=== PATIENT | male | born 1945 | race Caucasian/White ===

== ENCOUNTER 2017-06-30 14:19 | Inpatient (IN) | payer OTHER ==
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
[2017-06-30] MEDS ORDERED: chlordiazePOXIDE HCL 25 MG CAPSULE PO ONE (19:41)
[2017-06-30] MEDS ORDERED: chlordiazePOXIDE HCL 25 MG CAPSULE ONE (19:45)
[2017-06-30] MEDS ORDERED: SODIUM CHLORIDE 1,000 ML IV STA (19:55)
--- NOTE | 2017-06-30 20:03 | PDOC ---
History of Present Illness - General Chief Complaint: Injury Stated Complaint: RT SIDE PAIN Time Seen by Provider: 06/30/17 19:36 History Source: Patient - History of Present Illness Initial Comments: 06/30/17 19:54 72 year old male history of alcohol abuse daily "1 liter shannon" reports that he stopped drinking 1 day ago. now with LUQ pain radiating to back. patient reports that he fell out of bed two days ago fell to the right side. and hit head. unsure of injury to left side. patient reports worsening withdrawal symptoms since stopping alcohol intake. denies NVD,Hemoptysis, 06/30/17 23:44 Past History - Past Medical History Allergies/Adverse Reactions: Allergies Allergy/AdvReac Type Severity Reaction Status Date / Time No Known Allergies Allergy Verified 06/30/17 14:22 Home Medications: Ambulatory Orders Aspirin/Calcium Carbonate/Mag [Aspirin Buffered 325 mg Tab] 325 mg PO DAILY Atenolol [Tenormin -] 12.5 mg PO DAILY 09/20/15 Citalopram Hydrobromide [Celexa -] 20 mg PO DAILY 09/20/15 Lisinopril [Prinivil] 10 mg PO DAILY 09/20/15 Metformin HCl [Metformin HCl ER] 500 mg PO DAILY 09/20/15 Quetiapine Fumarate [Seroquel] 100 tab PO HS 09/20/15 Rosuvastatin Calcium [Crestor] 5 mg PO DAILY 09/20/15 Anemia: No Asthma: No Cancer: No Cardiac Disorders: No CVA: No COPD: No CHF: No Dementia: No Diabetes: Yes (Metformin) GI Disorders: No Disorders: No HTN: Yes (Lisinopril) Hypercholesterolemia: Yes (Crestor) Kidney Stones: No Liver Disease: Yes (Not on medication) Seizures: No Thyroid Disease: No - Surgical History Abdominal Surgery: No Appendectomy: No Cardiac Surgery: No Cholecystectomy: No Lung Surgery: Yes (CLOSED THORACOTOMY(CHEST TUBE)) Neurologic Surgery: No Orthopedic Surgery: No - Reproductive History Testicular Surgery: No - Suicide/Smoking/Psychosocial Hx Smoking History: Current every day smoker Have you smoked in the past 12 months: Yes Number of Cigarettes Smoked Daily: 20 Information on smoking cessation initiated: No 'Breaking Loose' booklet given: 06/16/17 Hx Alcohol Use: Yes Drug/Substance Use Hx: No Substance Use Type: None Hx Substance Use Treatment: Yes ([facility] 2016) Trauma Specific PMHX - Complaint Specific PMHX Arthritis: No Review of Systems - Review of Systems Able to Perform ROS?: Yes Is the patient limited [place] proficient: No ABD/GI: Yes: Abdominal cramping Neurological: Yes: Tremors *Physical Exam - Vital Signs Last Vital Signs Temp Pulse Resp BP Pulse Ox 97.8 F 70 18 144/95 100 06/30/17 14:24 06/30/17 19:23 06/30/17 19:23 06/30/17 19:23 06/30/17 19:23 - Physical Exam General Appearance: Yes: Mild Distress, Other. No: Alcohol on Breath Respiratory/Chest: positive: Lungs Clear, Normal Breath Sounds Cardiovascular: positive: Regular Rhythm, Regular Rate Gastrointestinal/Abdominal: positive: Normal Bowel Sounds, Tender (LUQ), Distended Extremity: positive: Normal Capillary Refill, Normal Inspection, Normal Range of Motion Integumentary: positive: Normal Color, Dry, Warm Neurologic: positive: Fully Oriented, Alert, Normal Mood/Affect, Other ( normocephalic) Heart Score/ECG Review - History History: Slightly suspicious - Electrocardiogram EKG: Normal - Age Age: >/= 65 - Risk Factors Risk Factors Heart Score: Yes Hx Hypercholesterolemia, Yes Hx Hypertension, Yes Hx Diabetes Based on the list above the patient has:: >/=3 risk factors or Hx atherosclerotic disease - Troponin Troponin: </= normal limit - Score Heart Score - Total: 4 - ECG Intrepretation Rhythm: Regular Rhythm Comment:: 06/30/17 23:45 NSR: 63bpm ED Treatment Course - LABORATORY CBC & Chemistry Diagram: 07/01/17 06:15 07/01/17 06:15 - Medications Given in the ED: ED Medications Discontinued Medications Generic Name Dose Route Start Last Admin Trade Name Freq PRN Reason Stop Dose Admin Chlordiazepoxide HCl 50 mg 06/30/17 19:41 06/30/17 19:48 Librium - PO 06/30/17 19:42 50 mg ONCE ONE Administration Progress Note - Progress Note Progress Note: A: abdominal pain. withdrawal P: cbc cmp ua CTAP CT head ribs librium ativan Patient to be admitted for alcohol withdrawal. Medical Decision Making - Medical Decision Making 06/30/17 23:[address] marin. patient to be admitted for obs tele *DC/Admit/Observation/Transfer Diagnosis at time of Disposition: Alcohol withdrawal Closed rib fracture Qualifiers: Encounter type: initial encounter Rib fracture type: single rib Laterality: left Qualified Code(s): S22.32XA - Fracture of one rib, left side, initial encounter for closed fracture - Discharge Dispostion Admit: Yes - Referrals - Patient Instructions - Post Discharge Activity
[2017-06-30 20:06] LABS: BASO % 0.7 % (0-2.0); EOS % 0.9 % (0-4.5); HEMATOCRIT 37.7 % (35.4-49); HEMOGLOBIN 12.9 GM/dL (11.7-16.9); LYMPH % 20.2 % (8-40); MCH 31.9 pg (25.7-33.7); MCHC 34.3 g/dl (32.0-35.9); MEAN CELL VOLUME 92.9 fl (80-96); MEAN PLT VOLUME 6.8 fl (7.5-11.1); MONO % 7.2 % (3.8-10.2); PLATELET COUNT 247 K/MM3 (134-434); RBC 4.06 M/mm3 (4.00-5.60); RDW 14.6 % (11.9-15.9)
[2017-06-30] MEDS ORDERED: FOLIC ACID INJECTION - 1 MG, THIAMINE HCL 100 MG, MULTIVIT INJECTION ADULT 10 ML in SOD... IVPB ONE (20:10)
[2017-06-30 20:51] LABS: ALBUMIN 3.4 g/dl (3.4-5.0); ALK PHOS 120 U/L (45-117); ANION GAP 4 (8-16); BILIRUBIN,TOTAL 0.6 mg/dL (0.2-1.0); BLOOD UREA NITROGEN 21 mg/dL (7-18); CALCIUM 9.3 mg/dL (8.5-10.1); CHLORIDE 102 mmol/L (98-107); CO2 32 mmol/L (21-32); CREATININE 0.8 mg/dL (0.7-1.3); GLUCOSE,RANDOM 88 mg/dL (74-106); LIPASE 112 U/L (73-393); POTASSIUM 4.5 mmol/L (3.5-5.1); SGOT/AST 24 U/L (15-37); SGPT/ALT 24 U/L (12-78); SODIUM 138 mmol/L (136-145); TOT PROT 7.8 g/dl (6.4-8.2)
--- NOTE | 2017-06-30 23:52 | PN ---
Teaching Attending Note Name of Resident: Sanjuana Rhodes ATTENDING PHYSICIAN STATEMENT I saw and evaluated the patient. I reviewed the resident's note and discussed the case with the resident. I agree with the resident's findings and plan as documented. SUBJECTIVE: 72 M with hx. of ETOH dependence, DM, ?liver dz, Depression, HTN, HLD, anxiety who presents with left upper quadrant pain. States he fell out of bed and fell to right side. Notes he stopped drinking 3 day ago. Denies any chest pain or pressure, except left rib pain. No shortness of breath. No fevers or chills. No nausea, vomiting or diarrhea. OBJECTIVE: Physical: VS: Vital Signs Period Temp Pulse Resp BP Sys/Alonso Pulse Ox Last 24 Hr 97.8 F 70-72 18-18 107-144/59-95 98-100 GEN: NAD, Resting in bed, AA0X3 HEENT: NCAT, PERRL, Throat without erythema or exudates CARD: RRR S1, S2 RESP: CTAB ABD: BSx4, NTD to palpation EXT: Tremulous UE, - C/C/E CBCD WBC 10.0 K/mm3 (4.0-10.0) 06/30/17 20:00 RBC 4.06 M/mm3 (4.00-5.60) 06/30/17 20:00 Hgb 12.9 GM/dL (11.7-16.9) 06/30/17 20:00 Hct 37.7 % (35.4-49) 06/30/17 20:00 MCV 92.9 fl (80-96) 06/30/17 20:00 MCHC 34.3 g/dl (32.0-35.9) 06/30/17 20:00 RDW 14.6 % (11.9-15.9) 06/30/17 20:00 Plt Count 247 K/MM3 (134-434) D 06/30/17 20:00 MPV 6.8 fl (7.5-11.1) L 06/30/17 20:00 CMP Sodium 138 mmol/L (136-145) 06/30/17 20:00 Potassium 4.5 mmol/L (3.5-5.1) 06/30/17 20:00 Chloride 102 mmol/L (98-107) 06/30/17 20:00 Carbon Dioxide 32 mmol/L (21-32) 06/30/17 20:00 Anion Gap 4 (8-16) L 06/30/17 20:00 BUN 21 mg/dL (7-18) H D 06/30/17 20:00 Creatinine 0.8 mg/dL (0.7-1.3) 06/30/17 20:00 Creat Clearance w eGFR > 60 (>60) 06/30/17 20:00 Random Glucose 88 mg/dL (74-106) 06/30/17 20:00 Calcium 9.3 mg/dL (8.5-10.1) 06/30/17 20:00 Total Bilirubin 0.6 mg/dL (0.2-1.0) 06/30/17 20:00 AST 24 U/L (15-37) D 06/30/17 20:00 ALT 24 U/L (12-78) D 06/30/17 20:00 Alkaline Phosphatase 120 U/L (45-117) H D 06/30/17 20:00 Total Protein 7.8 g/dl (6.4-8.2) 06/30/17 20:00 Albumin 3.4 g/dl (3.4-5.0) D 06/30/17 20:00 CARDIAC ENZYMES Creatine Kinase 89 IU/L (39-308) 06/30/17 20:04 Troponin I < 0.02 ng/ml (0.00-0.05) 06/30/17 20:04 CT ABD/PELVIS: Minimally displaced fx of L. 10th rib, enteritis, dilated CBD 12 mm, hepatic steatosis, Cirrumfrential wall thickening along distal esophagus, CT HEAD: No acute hemmorage or mass effect. 2.3cm Polypoid soft tissure in anterior L. nasal cavity. ASSESSMENT AND PLAN: 72 M with hx. of DM, HLD, Hep B (untreated)etoh dependence/abuse who presents with LUQ pain, being admitted for enteritis, management of withdrawl symptoms 1.) LUQ Abdominal Pain - Possible from Enteritis - Asymptomatic, no leukococytosis 2.) Etoh Dependence/Abuse - Thiamine/Folic A - CIWA - Detox Consult 3.) DM - FS - HgbA1c - RAISS 4.) Nasal Polyp - Needs Outpt. ENT FU 5.) Dvt Ppx - SCDs Place in Obs- tele
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
[2017-07-01] MEDS ORDERED: chlordiazePOXIDE HCL 25 MG CAPSULE ONE ×7 (02:17→19:13)
[2017-07-01] MEDS: chlordiazePOXIDE HCL 25 MG CAPSULE PO PRN ×2 (02:19→15:01)
[2017-07-01] MEDS: SODIUM CHLORIDE 1,000 ML IV SCH (04:57)
[2017-07-01] MEDS ORDERED: AZITHROMYCIN 250 MG TABLET ONE (05:00)
[2017-07-01] MEDS: chlordiazePOXIDE HCL 25 MG CAPSULE PO SCH ×3 (06:05→17:50)
[2017-07-01] MEDS: INSULIN SLIDING SCALE (NOVOLOG) 1 VIAL SQ SCH ×4 (07:15→22:36)
[2017-07-01 07:27] LABS: BASO % 0.3 % (0-2.0); HEMATOCRIT 34.9 % (35.4-49); LYMPH % 24.2 % (8-40); MCH 32.1 pg (25.7-33.7); MCHC 34.4 g/dl (32.0-35.9); MEAN CELL VOLUME 93.4 fl (80-96); MEAN PLT VOLUME 7.2 fl (7.5-11.1); MONO % 7.1 % (3.8-10.2); NEUT % 67.4 % (42.8-82.8); PLATELET COUNT 201 K/MM3 (134-434); RBC 3.74 M/mm3 (4.00-5.60); RDW 14.3 % (11.9-15.9); WHITE BLOOD COUNT 6.9 K/mm3 (4.0-10.0)
[2017-07-01 07:53] LABS: ANION GAP 4 (8-16); BLOOD UREA NITROGEN 19 mg/dL (7-18); CALCIUM 8.3 mg/dL (8.5-10.1); CHLORIDE 104 mmol/L (98-107); CO2 29 mmol/L (21-32); CREATININE 0.7 mg/dL (0.7-1.3); GLUCOSE,RANDOM 78 mg/dL (74-106); MAGNESIUM 1.7 mg/dL (1.8-2.4); PHOSPHOROUS 3.2 mg/dL (2.5-4.9); SODIUM 137 mmol/L (136-145)
[2017-07-01] MEDS ORDERED: MAGNESIUM 2GM/50ML STERILE WATER IVPB IVPB ONE (10:00)
[2017-07-01] MEDS ORDERED: THIAMINE HCL 100 MG TABLET (FP) PO SCH (10:00)
--- NOTE | 2017-07-01 10:45 | CONSULT ---
Consult Detox [facility] Reason for Current Admission/Consult: substance use Referred by:: dalila aldana - History History of Present Illness: 72 yo m with multiple medical comobidities includign alcohol use seble doddts 36 years sober and 36 years drinking was drinking 1 litre vodka daily when he stopped 4 days ago developed withdrawal sx and fell,now left rib fx on xary and in alcohol withdrawal . patient reports h/o alcohol withdrawal seizure alessandra past, dneis DTs h/o depression on medication. reports alcohol wtihdrawal sx still tolerating libirum deto x as ordere without sedation. smokes 1/5 PPD. denies all otehr illicit substance [facility] at [facility]. - History Source History Provided By: Patient, Medical Record, Caregiver Limitations to Obtaining History: No Limitations - Alcohol/Substance Use Hx Alcohol Use: Yes (1 litre daily vodka) Hx Substance Use Treatment: Yes - Current Drug/Alcohol Use Alcohol Route: Oral Frequency: Daily Amount used: 1 litre vodka Age of first use: 13 Date of Last Use: 06/27/17 - Significant Medical Findings: 72 yo m with h/o alchol use disorder severe, w alcohol withdrawal seizures, d/c drinking a few days ago and fell fx left rib,, admitted with alcohol withdrwal sx, pain left chest wall 2/2 fx rib CIWA Score - CIWA Score Nausea/Vomitin-Mild Nausea/No Vomiting Muscle Tremors: 4-Moderate,w/Arms Extend Anxiety: 3 Agitation: 3 Paroxysmal Sweats: 3 Orientation: 0-Oriented Tacttile Disturbances: 1-Very Mild Itch/Numbness Auditory Disturbances: 0-None Visual Disturbances: 0-None Headache: 1-Very Mild CIWA-Ar Total Score: 16 Assessment Plan - Diagnosis (1) Closed rib fracture Status: Acute Qualifiers: Encounter type: initial encounter Rib fracture type: single rib Laterality: left Qualified Code(s): S22.32XA - Fracture of one rib, left side , initial encounter for closed fracture (2) Drug-induced mood disorder Status: Acute (3) Hepatitis C Status: Acute (4) Plaque psoriasis Status: Acute (5) Substance induced mood disorder Status: Acute (6) Alcohol dependence with uncomplicated withdrawal Status: Chronic (7) Depression Status: Chronic Qualifiers: Major depression episode severity: unspecified (8) HTN (hypertension) Status: Chronic Qualifiers: Hypertension type: essential hypertension Qualified Code(s): I10 - Essential (primary) hypertension (9) Hypercholesterolemia Status: Chronic (10) Nicotine dependence Status: Chronic Qualifiers: Nicotine product type: cigarettes Substance use status: uncomplicated Qualified Code(s): F17.210 - Nicotine dependence, cigarettes, uncomplicated (11) Type II diabetes mellitus Status: Chronic Qualifiers: Diabetes mellitus oysterman insulin use: without oysterman use Diabetes mellitus complication status: without complication Qualified Code(s): E11.9 - Type 2 diabetes mellitus without complications - Plan Plan: chart, imaging and labs reviewed, patietn examined and hisotry taken. discussed care with medical teamin Ed. recommend: 1. fluids, vitamins, cont libirum detox, give libirum prn doses generaously, extra libirum 50mg dose ordered for this evening, patient is at risk of withdrawl seizures if nto appropritelymedicated, due to his age, mild sedation is indicated. 2. rib fx - lidoderm patch ordered for pain. refer for inpateitn rehab after he completes detox. Prasad Medrano MD [phone] - Medication Detox Regimen/Protocol: Librium
[2017-07-01] MEDS ORDERED: ZOLPIDEM TARTRATE 5 MG TABLET PO PRN ×2 (10:46→22:00)
[2017-07-01] MEDS: CITALOPRAM HYDROBROMIDE 20 MG TABLET (FP) PO SCH (11:27)
[2017-07-01] MEDS: ROSUVASTATIN CA 5 MG TABLET (FP) PO SCH (11:27)
[2017-07-01] MEDS: LISINOPRIL 10 MG TABLET (FP) PO SCH (11:27)
[2017-07-01] MEDS: FOLIC ACID 1 MG TABLET (FP) PO SCH (11:27)
[2017-07-01] MEDS: ATENOLOL 25 MG TABLET (FP) PO SCH (11:28)
[2017-07-01] MEDS: MAGNESIUM OXIDE 400 MG TABLET (FP) PO SCH ×2 (15:01→22:06)
--- NOTE | 2017-07-01 15:05 | PN ---
Physical Exam: SUBJECTIVE: Patient seen and examined at the bedside. OBJECTIVE: Called [facility] pharmacy to confirm meds: - Depakote 1000mg DR @ bedtime - Naltrexone (Vivitrol) 50mg daily - Citalopram 20mg daily - Seroquel 100mg @ bedtime daily - Multivitamin daily Vital Signs Period Temp Pulse Resp BP Sys/Alonso Pulse Ox Last 24 Hr 97.9 F-98.4 F 56-70 16-18 123-144/59-95 96-100 GENERAL: The patient is awake, alert, and fully oriented, mild tremors at rest HEAD: Normal with no signs of trauma. EYES: PERRL, extraocular movements intact, sclera anicteric, conjunctiva clear. No ptosis. ENT: Ears normal, nares patent, oropharynx clear without exudates, moist mucous membranes. NECK: Trachea midline, full range of motion, supple. LUNGS: Breath sounds equal, clear to auscultation bilaterally HEART: Regular rate and rhythm ABDOMEN: Soft, nontender, mildly distended EXTREMITIES: no edema. NEUROLOGICAL: Normal speech, gait not observed. PSYCH: anxious Laboratory Results - last 24 hr 06/30/17 06/30/17 06/30/17 20:00 20:00 20:00 WBC 10.0 RBC 4.06 Hgb 12.9 Hct 37.7 MCV 92.9 MCH 31.9 MCHC 34.3 RDW 14.6 Plt Count 247 D MPV 6.8 L Neutrophils % 71.0 Lymphocytes % 20.2 Monocytes % 7.2 Eosinophils % 0.9 Basophils % 0.7 Sodium 138 Potassium 4.5 Chloride 102 Carbon Dioxide 32 Anion Gap 4 L BUN 21 H D Creatinine 0.8 Creat Clearance w eGFR > 60 POC Glucometer Random Glucose 88 Hemoglobin A1c % Calcium 9.3 Phosphorus Magnesium Total Bilirubin 0.6 AST 24 D ALT 24 D Alkaline Phosphatase 120 H D Ammonia Creatine Kinase Troponin I Total Protein 7.8 Albumin 3.4 D Lipase 112 Alcohol, Quantitative < 5.0 06/30/17 06/30/17 07/01/17 20:04 20:04 06:15 WBC 6.9 D RBC 3.74 L Hgb 12.0 Hct 34.9 L MCV 93.4 MCH 32.1 MCHC 34.4 RDW 14.3 Plt Count 201 MPV 7.2 L Neutrophils % 67.4 Lymphocytes % 24.2 Monocytes % 7.1 Eosinophils % 1.0 Basophils % 0.3 Sodium Potassium Chloride Carbon Dioxide Anion Gap BUN Creatinine Creat Clearance w eGFR POC Glucometer Random Glucose Hemoglobin A1c % Calcium Phosphorus Magnesium Total Bilirubin AST ALT Alkaline Phosphatase Ammonia 16.26 Creatine Kinase 89 Troponin I < 0.02 Total Protein Albumin Lipase Alcohol, Quantitative 07/01/17 07/01/17 07/01/17 06:15 06:15 13:16 WBC RBC Hgb Hct MCV MCH MCHC RDW Plt Count MPV Neutrophils % Lymphocytes % Monocytes % Eosinophils % Basophils % Sodium 137 Potassium 4.0 Chloride 104 Carbon Dioxide 29 Anion Gap 4 L BUN 19 H Creatinine 0.7 Creat Clearance w eGFR POC Glucometer 109.72250 Random Glucose 78 Hemoglobin A1c % 5.5 Calcium 8.3 L Phosphorus 3.2 Magnesium 1.7 L Total Bilirubin AST ALT Alkaline Phosphatase Ammonia Creatine Kinase Troponin I Total Protein Albumin Lipase Alcohol, Quantitative Active Medications Generic Name Dose Route Start Last Admin Trade Name Freq PRN Reason Stop Dose Admin Atenolol 12.5 mg 07/01/17 10:00 07/01/17 11:28 Tenormin - PO 12.5 mg DAILY JOSE F Administration Chlordiazepoxide HCl 50 mg 07/01/17 05:00 07/01/17 12:42 Librium - PO 07/01/17 23:01 50 mg [id number] JOSE F Administration Chlordiazepoxide HCl 25 mg 07/02/17 05:00 Librium - PO 07/02/17 23:01 [id number] JOSE F Chlordiazepoxide HCl 15 mg 07/03/17 05:00 Librium - PO 07/03/17 23:01 [id number] JOSE F Chlordiazepoxide HCl 25 mg 07/01/17 00:55 07/01/17 02:19 Librium - PO 07/04/17 00:54 25 mg Q4H PRN Administration WITHDRAWAL(CONT SUBST) Citalopram Hydrobromide 20 mg 07/01/17 10:00 07/01/17 11:27 Celexa - PO 20 mg DAILY JOSE F Administration Folic Acid 1 mg 07/01/17 10:00 07/01/17 11:27 Folic Acid - PO 1 mg DAILY JOSE F Administration Sodium Chloride 1,000 mls @ 100 mls/hr 07/01/17 01:00 07/01/17 04:57 Normal Saline - IV 100 mls/hr ASDIR JOSE F Administration Insulin Aspart 1 vial 07/01/17 07:00 07/01/17 11:26 Novolog Vial Sliding Scale - SQ Not Given ACHS [facility] Protocol Ketorolac Tromethamine 10 mg 07/01/17 00:57 Toradol PO 07/06/17 00:59 Q6H PRN PAIN LEVEL 6-10 Lisinopril 10 mg 07/01/17 10:00 07/01/17 11:27 Prinivil PO 10 mg DAILY JOSE F Administration Magnesium Oxide 400 mg 07/01/17 11:00 Mag-Ox - PO BID JOSE F Multivit/Folic Acid/Iron 1 tab 07/02/17 10:00 Vitamins (Sjr) - PO DAILY JOES F Rosuvastatin Calcium 5 mg 07/01/17 10:00 07/01/17 11:27 Crestor - PO 5 mg DAILY JOSE F Administration Thiamine HCl 100 mg 07/01/17 22:00 Vitamin B1 - PO HS JOSE F Zolpidem Tartrate 5 mg 07/01/17 10:46 Ambien - PO HS PRN INSOMNIA ASSESSMENT/PLAN: Patient is a 72 year old male with a past medical history of alcohol abuse x 36 years, hepatitis B , depression, hypertension and diabetes. He has attempted sobriety multiple times as per patient and was most recently on Naltrexone ( Vivitrol) 50mg daily (attended AA meetings at [facility]) . He presents to the ED with withdrawals symptoms and admits to relapsing and drinking beer and 1 liter of vodka at home. He noted he was becomeing more tremulous and unsteady on his feet. He fell out of his bed and now has increased pain with movement on left flank Psyche: ETOH w/drawal, acute On Librium taper CIWA elevated Patient still with tremors Vitamin b1, vitamins, folic acid Can be monitored on med/surg floor Continue hydration Dr. Medrano following Mechanical fall 2/2 to ETOH w/drawal Rib series with no acute fracture Neuro: Seizure history On depakote 1000mg DR @ bedtime home dose Check valporic levels Depression/modd disorder on Citolopram On Seroquel 100mg @ bedtime daily home dose (hold Seroquel while on Librium as it may cause oversedation) Card: Hyperlipidemia On crestor 5mg PO Hypertension, chronic Monitor BP Continue lisinopril 20mg qd, atenolol 12.5mg qd' GI: Hepatitis B Outpatient follow up Endocrine: Diabetes, chronic Novolog SS, BGMs Diabetic diet Disposition: full code.
--- NOTE | 2017-07-01 17:01 | EKG ---
Test Reason : Blood Pressure : / mmHG Vent. Rate : 063 BPM Atrial Rate : 063 BPM P-R Int : 196 ms QRS Dur : 086 ms QT Int : 446 ms P-R-T Axes : 072 044 069 degrees QTc Int : 456 ms NORMAL SINUS RHYTHM NORMAL ECG WHEN COMPARED WITH ECG OF 16-JUN-2017 22:09, NO SIGNIFICANT CHANGE WAS FOUND Confirmed by MD Mejía Edward ([id number]) on 07/01/2017 5:01:08 PM Referred By: Confirmed By:Kevyn Mejía MD
[2017-07-01] MEDS ORDERED: NICOTINE POLACRILEX 2 MG GUM BUC PRN (17:05)
[2017-07-01] MEDS ORDERED: chlordiazePOXIDE HCL 25 MG CAPSULE PO ONE (19:00)
[2017-07-01] MEDS ORDERED: LIDOCAINE 5% TOPICAL PATCH ONE (19:13)
[2017-07-01] MEDS: LIDOCAINE 5% TOPICAL PATCH TP SCH (19:19)
[2017-07-01] MEDS: NICOTINE 21 MG/24 HOURS TOPICAL PATCH TD SCH (19:39)
[2017-07-01] MEDS ORDERED: DIVALPROEX SODIUM 250 MG TABLET E.C. PO SCH (22:00)
[2017-07-01] MEDS: KETOROLAC TROMETHAMINE 10 MG TABLET PO PRN (22:05)
[2017-07-01] MEDS: LIDOCAINE PATCH REMOVAL MC SCH (22:07)
[2017-07-01] MEDS ORDERED: DIVALPROEX SODIUM 500 MG TABLET E.C. ONE (22:10)
[2017-07-01] MEDS: DIVALPROEX SODIUM 500 MG TABLET E.C. PO SCH (22:14)
[2017-07-02] MEDS: SODIUM CHLORIDE 1,000 ML IV SCH (00:02)
[2017-07-02] MEDS: THIAMINE HCL 100 MG TABLET (FP) PO SCH ×2 (00:02→21:39)
[2017-07-02] MEDS: chlordiazePOXIDE HCL 25 MG CAPSULE PO SCH ×3 (00:02→10:53)
[2017-07-02 02:59] VITALS: BMI 26.7
[2017-07-02] MEDS: KETOROLAC TROMETHAMINE 10 MG TABLET PO PRN ×2 (05:12→14:38)
[2017-07-02 05:49] LABS: URINE APPEARANCE CLEAR; URINE BILIRUBIN NEGATIVE (<2.0 mg/dL); URINE BLOOD NEGATIVE (NEGATIVE); URINE COLOR LTYELLOW; URINE GLUCOSE (UA) NEGATIVE (NEGATIVE); URINE KETONE NEGATIVE (NEGATIVE); URINE NITRITE NEGATIVE (NEGATIVE); URINE PROTEIN NEGATIVE (NEGATIVE); URINE UROBILINOGEN NEGATIVE mg/dL (0.2-1.0)
[2017-07-02 05:52] LABS: URINE LEUK ESTERASE 1+ (NEGATIVE)
[2017-07-02 05:59] LABS: URINE BACTERIA RARE /hpf (NONE SEEN); URINE MUCUS RARE
[2017-07-02] MEDS: INSULIN SLIDING SCALE (NOVOLOG) 1 VIAL SQ SCH ×4 (06:00→21:44)
[2017-07-02 06:10] LABS: COCAINE, UR NEGATIVE ng/ml (CUTOFF=300); METHADONE, UR NEGATIVE ng/ml (CUTOFF=300); OPIATES, URI NEGATIVE ng/ml (CUTOFF=300); PHENCYCLIDINE,URINE NEGATIVE ng/ml (CUTOFF=25); URINE AMPHETAMINES NEGATIVE ng/ml (CUTOFF=500); URINE BARBITURATES NEGATIVE ng/ml (CUTOFF=200)
[2017-07-02 06:13] LABS: URINE BENZODIAZEPINES POSITIVE ng/ml (CUTOFF=200)
[2017-07-02] MEDS ORDERED: PRENATAL VITAMINS W/ FOLIC ACID TABLET (FP) PO SCH (10:00)
[2017-07-02] MEDS: ROSUVASTATIN CA 5 MG TABLET (FP) PO SCH (10:51)
[2017-07-02] MEDS: CITALOPRAM HYDROBROMIDE 20 MG TABLET (FP) PO SCH (10:51)
[2017-07-02] MEDS: LISINOPRIL 10 MG TABLET (FP) PO SCH (10:52)
[2017-07-02] MEDS: FOLIC ACID 1 MG TABLET (FP) PO SCH (10:52)
[2017-07-02] MEDS: LIDOCAINE 5% TOPICAL PATCH TP SCH (10:52)
[2017-07-02] MEDS: NICOTINE 21 MG/24 HOURS TOPICAL PATCH TD SCH (10:52)
[2017-07-02] MEDS: MAGNESIUM OXIDE 400 MG TABLET (FP) PO SCH ×2 (10:52→21:39)
[2017-07-02] MEDS: ATENOLOL 25 MG TABLET (FP) PO SCH (10:53)
[2017-07-02] MEDS ORDERED: chlordiazePOXIDE HCL 25 MG CAPSULE PO ONE (15:00)
--- NOTE | 2017-07-02 15:00 | PN ---
Physical Exam: SUBJECTIVE: Patient seen and examined. States his pain is much better controlled today. He denies sob, chest pain. OBJECTIVE: Vital Signs Period Temp Pulse Resp BP Sys/Alonso Pulse Ox Last 24 Hr 97.6 F-98.7 F 55-100 18-20 121-162/42-99 96-98 PE Neuro: alert, awake, cn 2-12intact +UE tremors Pulm: CTAB CV: s1 s2 rrr no mrg Abd: RLQ sft mass ?fat, abd soft, +bs Ext: warm, no le edema Skin: elbow ezcema, knee scraps,no blood Laboratory Results - last 24 hr 07/01/17 07/01/17 07/01/17 17:48 21:30 22:34 POC Glucometer 94.39947 109.83206 Urine Color Urine Appearance Urine pH Ur Specific [place] Urine Protein Urine Glucose (UA) Urine Ketones Urine Blood Urine Nitrite Urine Bilirubin Urine Urobilinogen Ur Leukocyte Esterase Urine WBC (Auto) Urine RBC (Auto) Urine Bacteria Urine Mucus Opiates Screen Methadone Screen Barbiturate Screen Valproic Acid 5.962 L Phencyclidine Screen Ur Amphetamines Screen MDMA (Ecstasy) Screen Benzodiazepines Screen Cocaine Screen U Marijuana (THC) Screen 07/02/17 07/02/17 07/02/17 05:00 05:05 05:29 POC Glucometer 95 Urine Color Ltyellow Urine Appearance Clear Urine pH 7.0 Ur Specific [place] 1.016 Urine Protein Negative Urine Glucose (UA) Negative Urine Ketones Negative Urine Blood Negative Urine Nitrite Negative Urine Bilirubin Negative Urine Urobilinogen Negative Ur Leukocyte Esterase 1+ H Urine WBC (Auto) 31 Urine RBC (Auto) 1 Urine Bacteria Rare Urine Mucus Rare Opiates Screen Negative Methadone Screen Negative Barbiturate Screen Negative Valproic Acid Phencyclidine Screen Negative Ur Amphetamines Screen Negative MDMA (Ecstasy) Screen Negative Benzodiazepines Screen Positive Cocaine Screen Negative U Marijuana (THC) Screen Negative Active Medications Generic Name Dose Route Start Last Admin Trade Name Freq PRN Reason Stop Dose Admin Atenolol 12.5 mg 07/01/17 10:00 07/02/17 10:53 Tenormin - PO 12.5 mg DAILY JOSE F Administration Chlordiazepoxide HCl 15 mg 07/02/17 11:30 Librium - PO 07/02/17 23:01 [id number] JOSE F Chlordiazepoxide HCl 10 mg 07/03/17 05:00 Librium - PO 07/03/17 11:01 [id number] JOSE F Chlordiazepoxide HCl 25 mg 07/02/17 14:49 Librium - PO 07/02/17 14:50 ONCE ONE Citalopram Hydrobromide 20 mg 07/01/17 10:00 07/02/17 10:51 Celexa - PO 20 mg DAILY JOSE F Administration Divalproex Sodium 1,000 mg 07/01/17 22:00 07/01/17 22:14 Depakote - PO 1,000 mg HS JOSE F Administration Folic Acid 1 mg 07/01/17 10:00 07/02/17 10:52 Folic Acid - PO 1 mg DAILY JOSE F Administration Sodium Chloride 1,000 mls @ 100 mls/hr 07/01/17 01:00 07/02/17 00:02 Normal Saline - IV 100 mls/hr ASDIR JOSE F Administration Insulin Aspart 1 vial 07/01/17 07:00 07/02/17 12:39 Novolog Vial Sliding Scale - SQ Not Given ACHS [facility] Protocol Ketorolac Tromethamine 10 mg 07/01/17 00:57 07/02/17 14:38 Toradol PO 07/06/17 00:59 10 mg Q6H PRN Administration PAIN LEVEL 6-10 Lidocaine 1 patch 07/01/17 17:15 07/02/17 10:52 Lidoderm Patch - TP 1 patch DAILY JOSE F Administration Lisinopril 10 mg 07/01/17 10:00 07/02/17 10:52 Prinivil PO 10 mg DAILY JOSE F Administration Magnesium Oxide 400 mg 07/01/17 11:00 07/02/17 10:52 Mag-Ox - PO 400 mg BID JOSE F Administration Miscellaneous 1 each 07/01/17 22:00 07/01/17 22:07 Lidoderm Patch Removal MC 1 each DAILY@2200 JOSE F Administration Nicotine 21 mg 07/01/17 17:15 07/02/17 10:52 Nicoderm Patch - TD 21 mg DAILY JOSE F Administration Nicotine Polacrilex 2 mg 07/01/17 17:05 Nicorette Gum - BUC Q2H PRN NICOTINE REPLACEMENT RX Multivit/Folic Acid/Iron 1 tab 07/02/17 10:00 07/02/17 10:53 Vitamins (Sjr) - PO 1 tab DAILY JOSE F Administration Rosuvastatin Calcium 5 mg 07/01/17 10:00 07/02/17 10:51 Crestor - PO 5 mg DAILY JOSE F Administration Thiamine HCl 100 mg 07/01/17 22:00 07/02/17 00:02 Vitamin B1 - PO 100 mg HS JOSE F Administration Zolpidem Tartrate 5 mg 07/01/17 22:00 07/02/17 00:03 Ambien - PO 5 mg HS PRN Administration INSOMNIA Assessment: 72 year old male with pmhx of alcohol abuse x 36 years, hepatitis B , depression, HTN, DM II admitted s/p fall due to ETOH relapse sustaining rib fracture. Plan: 1. Acute ETOH withdrawal - Complete librum detox tomorrow - [facility], no beds available today - MVI, folic acid, thiamine 2. s/p Fall - Rib contusion no fractures seen - Lidocaine patches, tylenol prn pain - Imaging noted 3. Seizure - Depakote 1000mg DR @ bedtime - Naltrexone (Vivitrol) 50mg daily - Citalopram 20mg daily - Seroquel 100mg @ bedtime daily 4. HLD - Crestor 5. HTN - Elevated, however in pain and withdrawing - Lisinopril 20mg daily - Atenolol 12.5mg daily - Stop fluds, uptitrate meds as needed 6. DM II - ISS, BGM ACHS - Hold po antidiabetics 7. Hepatitis B Outpatient follow up 8. Hypomagnesemia - PO mg BID - check level in am, can dc supplement Visit type - Emergency Visit Emergency Visit: Yes ED Registration Date: 07/01/17 Care time: The patient presented to the Emergency Department on the above date and was hospitalized for further evaluation of their emergent condition. - New Patient This patient is new to me today: Yes Date on this admission: 07/02/17 - Critical Care Critical Care patient: No
[2017-07-02] MEDS: chlordiazePOXIDE 5 MG CAPSULE PO SCH ×2 (17:11→23:06)
[2017-07-02] MEDS ORDERED: INSULIN (NOVOLOG) ASPART 100 UNITS/ML 10ML VIAL ONE (17:13)
[2017-07-02 17:44] VITALS: PULSE 56
[2017-07-02] MEDS: ACETAMINOPHEN 325 MG TABLET (FP) PO PRN (21:39)
[2017-07-02] MEDS: DIVALPROEX SODIUM 500 MG TABLET E.C. PO SCH (21:39)
[2017-07-02] MEDS: LIDOCAINE PATCH REMOVAL MC SCH (21:45)
[2017-07-03] MEDS: ACETAMINOPHEN 325 MG TABLET (FP) PO PRN (04:19)
[2017-07-03] MEDS ORDERED: chlordiazePOXIDE 5 MG CAPSULE PO SCH ×2 (05:00)
[2017-07-03] MEDS: INSULIN SLIDING SCALE (NOVOLOG) 1 VIAL SQ SCH (06:24)
[2017-07-03 06:54] VITALS: BP 153/72; TEMP 98.3
--- NOTE | 2017-07-03 08:34 | DS ---
Physical Exam: HOSPITAL COURSE: Date of Admission:07/01/17 Date of Leaving AMA: 07/03/17 72 year old male with pmhx of alcohol abuse x 36 years, hepatitis B, depression , HTN, DM II admitted s/p fall due to ETOH relapse sustaining rib fracture. Plan: 1. Acute ETOH withdrawal - Librium detox completed - [facility], no beds available today - MVI, folic acid, thiamine 2. s/p Fall - Rib contusion no fractures seen - Lidocaine patches, tylenol prn pain 3. Seizure disorder - Depakote 1000mg DR @ bedtime - Naltrexone (Vivitrol) 50mg daily - Citalopram 20mg daily - Seroquel 100mg @ bedtime daily 4. HLD - Crestor 5. HTN - Elevated, however in pain and withdrawing - Lisinopril 20mg daily - Atenolol 12.5mg daily 6. DM II - ISS, BGM ACHS 7. Hepatitis B Outpatient follow up 8. Hypomagnesemia - PO mg BID Minutes to complete discharge: 35 Discharge Summary Reason For Visit: CLOSED FRACTURE OF RIB, LEFT UPPER QUADRANT PAIN Condition: Guarded - Instructions Disposition: AGAINST MEDICAL ADVICE - Home Medications Comprehensive Discharge Medication List: Ambulatory Orders Aspirin/Calcium Carbonate/Mag [Aspirin Buffered 325 mg Tab] 325 mg PO DAILY Atenolol [Tenormin -] 12.5 mg PO DAILY 09/20/15 Citalopram Hydrobromide [Celexa -] 20 mg PO DAILY 09/20/15 Lisinopril [Prinivil] 10 mg PO DAILY 09/20/15 Metformin HCl [Metformin HCl ER] 500 mg PO DAILY 09/20/15 Quetiapine Fumarate [Seroquel] 100 tab PO HS 09/20/15 Rosuvastatin Calcium [Crestor] 5 mg PO DAILY 09/20/15 This patient is new to me today: Yes Date on this admission: 07/03/17 Emergency Visit: Yes ED Registration Date: 07/01/17 Care time: The patient presented to the Emergency Department on the above date and was hospitalized for further evaluation of their emergent condition. Critical Care patient: No - Discharge Referral Referred to [facility] Med [facility] No
== END 2017-07-03 08:18 | disposition left against medical advice (07) | DRG 894 ==
LOC: JER 14:19 → JERBED 23:42 → OBSVTOIN 07-01 08:51 → J6S 07-01 23:57
PROVIDERS: ADMIT Internal Medicine; ATTEND Nurse Practitioner Acute Care
PROC: HZ2ZZZZ Detoxification Services for Substance Abuse Treatment (ICD-10-PCS; principal; 2017-07-02)
DX: F10.230 Alcohol dependence with withdrawal, uncomplicated (principal); S22.32XB Fracture of one rib, left side, initial encounter for open fracture; B19.10 Unspecified viral hepatitis B without hepatic coma; J98.11 Atelectasis; E11.9 Type 2 diabetes mellitus without complications; I10 Essential (primary) hypertension; F32.9 Major depressive disorder, single episode, unspecified; F17.200 Nicotine dependence, unspecified, uncomplicated; L40.0 Psoriasis vulgaris; F39 Unspecified mood [affective] disorder; E83.42 Hypomagnesemia; G40.909 Epilepsy, unspecified, not intractable, without status epilepticus; E78.5 Hyperlipidemia, unspecified; K52.9 Noninfective gastroenteritis and colitis, unspecified; R25.1 Tremor, unspecified; F19.94 Other psychoactive substance use, unspecified with psychoactive substance-induced mood disorder; Y93.9 Activity, unspecified; W06.XXXA Fall from bed, initial encounter; Y92.009 Unspecified place in unspecified non-institutional (private) residence as the place of occurrence of the external cause
CPT/HCPCS: 36415; 70450-TC; 71046-TC-FY; 71101-TC-FY; 74177-TC; 80048; 80053; 80164; 80307; 81003; 81015; 82140; 82550; 82962; 83036; 83690; 83735; 84100; 84484; 85025; 93005; 93010; 99285-25; G0378; J7030

== ENCOUNTER 2017-07-20 16:27 | Inpatient (IN) | payer OTHER ==
--- NOTE | 2017-07-20 19:18 | HP ---
CIWA Score - CIWA Score Nausea/Vomitin Muscle Tremors: 3 Anxiety: 3 Agitation: 3 Paroxysmal Sweats: 1-Minimal Palms Moist Orientation: 0-Oriented Tacttile Disturbances: 2-Mild Itch/Numbness/Burn Auditory Disturbances: 2-Mild Harshness/Frighten Visual Disturbances: 1-Very Mild Sensitivity Headache: 2-Mild CIWA-Ar Total Score: 20 Admission ROS BHS - HPI Chief Complaint: I NEED HELP TO STOP DRINKING Allergies/Adverse Reactions: Allergies Allergy/AdvReac Type Severity Reaction Status Date / Time No Known Allergies Allergy Verified 07/20/17 19:17 History of Present Illness: THIS 72 YEARS OLD MALE WITH ALCOHOL DEPENDENCE,SEEKING DETOX,WITHDRAWAL SYMPTOM, LAST DETOX [facility] 06/16/17 TO 06/21/17 SYNCOPE ALCOHOL RELATED FREQUENT FALL HISTORY OF FX LEFT RIB HYPERTENSION,TYPE 2 DM,HYPERCHOLESTEROLEMIA DEPRESSION,INSOMNIA MULTIPLE ADMISSIONS IN THE PAST LONGEST SOBRIETY 7 YEARS - Ebola screening Have you traveled outside of the country in the last 21 days: No - Review of Systems Constitutional: Loss of Appetite, Malaise, Night Sweats, Changes in sleep, Weakness, Unintentional Wgt. Loss EENT: reports: Nose Congestion Cardiac: reports: No Symptoms Reported GI: reports: Nausea, Poor Appetite, Abdominal cramping : reports: No Symptoms Reported Musculoskeletal: reports: Back Pain, Muscle Pain Integumentary: reports: Dryness Neuro: reports: Headache, Tremors Endocrine: reports: No Symptoms Reported Hematology: reports: No Symptoms Reported Psychiatric: reports: No Sypmtoms Reported, Judgement Intact, Mood/Affect Appropiate, Orientated x3, Depressed Patient History - Patient Medical History Hx Anemia: No Hx Asthma: No Hx Chronic Obstructive Pulmonary Disease (COPD): No Hx Cancer: No Hx Cardiac Disorders: No Hx Congestive Heart Failure: No Hx Hypertension: Yes (ON MED) Hx Hypercholesterolemia: Yes (0N MED) Hx Pacemaker: No HX Cerebrovascular Accident: No Hx Seizures: No Hx Dementia: No Hx Diabetes: Yes (ON MED) Hx Gastrointestinal Disorders: No Hx Liver Disease: Yes (Not on medication) Hx Genitourinary Disorders: No Hx Sexually Transmitted Disorders: No Hx Renal Disease (ESRD): No Hx Thyroid Disease: No Hx Human Immunodeficiency Virus (HIV): No (Negative 1989) Hx Hepatitis C: Yes (TREATMENT PENDING) Hx Depression: Yes (Celexa, Seroquel) Hx Suicide Attempt: No Hx Bipolar Disorder: No Hx Schizophrenia: No Other Medical History: NO SUICIDAL,NO HOMICIDAL - Patient Surgical History Past Surgical History: Yes Hx Neurologic Surgery: No Hx Cataract Extraction: No Hx Cardiac Surgery: No Hx Lung Surgery: Yes (CLOSED THORACOTOMY(CHEST TUBE) AT AGE OF 52 POST TRAUMA) Hx Breast Surgery: No Hx Breast Biopsy: No Hx Abdominal Surgery: No Hx Appendectomy: No Hx Cholecystectomy: No Hx Genitourinary Surgery: No Hx Section: No Hx Orthopedic Surgery: No Other Surgical History: nasal polyps removed Anesthesia Reaction: No - PPD History Previous Implant?: Yes Documented Results: Negative w/o proof Date: 06/18/17 Results: 0 MM PPD to be Administered?: No - Smoking Cessation Smoking history: Current every day smoker Have you smoked in the past 12 months: Yes Aproximately how many cigarettes per day: 20 Hx Chewing Tobacco Use: No Initiated information on smoking cessation: Yes 'Breaking Loose' booklet given: 07/20/17 - Substance & Tx. History Hx Alcohol Use: Yes Hx Substance Use: No Substance Use Type: Alcohol Hx Substance Use Treatment: Yes ([facility] 06/16/17 TO 06/21/17) - Substances Abused Alcohol Route: Oral Frequency: Daily Amount used: 1 LITER VODKA Age of first use: 28 Date of Last Use: 07/19/17 Family Disease History - Family Disease History Family Disease History: Heart Disease: Father (HTN,CRF?), Other: Mother ( ALCOHOLIC) Admission Physical Exam S - Vital Signs Vital Signs: Vital Signs Temperature 97.8 F 07/21/17 06:43 Pulse Rate 61 07/21/17 06:43 Respiratory Rate 18 07/21/17 06:43 Blood Pressure 123/59 07/21/17 06:43 O2 Sat by Pulse Oximetry (%) - Physical General Appearance: Yes: Moderate Distress, Tremorous, Irritable, Anxious HEENTM: Yes: Normal ENT Inspection, ISAURA, Pharynx Normal Respiratory: Yes: Lungs Clear, Normal Breath Sounds, No Respiratory Distress Neck: Yes: Within Normal Limits, Supple, Trachea in good position Breast: Yes: Within Normal Limits Cardiology: Yes: Within Normal Limits, Regular Rhythm, Regular Rate, S1, S2 Abdominal: Yes: Within Normal Limits, Normal Bowel Sounds, Non Tender, Soft Genitourinary: Yes: Within Normal Limits Back: Yes: Muscle Spasm Musculoskeletal: Yes: Back pain, Muscle Pain Extremities: Yes: Normal Range of Motion, Tremors, Other (CLUB FINGERS) Integumentary: Yes: Dry Lymphatic: Yes: Within Normal Limits - Diagnostic (1) Alcohol dependence with uncomplicated withdrawal Current Visit: No Status: Chronic (2) Closed rib fracture Current Visit: No Status: Acute Qualifiers: Encounter type: initial encounter Rib fracture type: single rib Laterality: left Qualified Code(s): S22.32XA - Fracture of one rib, left side , initial encounter for closed fracture (3) Hepatitis C Current Visit: No Status: Acute (4) Plaque psoriasis Current Visit: No Status: Acute (5) Substance induced mood disorder Current Visit: No Status: Acute (6) Depression Current Visit: No Status: Chronic Qualifiers: Major depression episode severity: unspecified (7) HTN (hypertension) Current Visit: No Status: Chronic Qualifiers: Hypertension type: essential hypertension Qualified Code(s): I10 - Essential (primary) hypertension (8) Hypercholesterolemia Current Visit: No Status: Chronic (9) Nicotine dependence Current Visit: No Status: Chronic Qualifiers: Nicotine product type: cigarettes Substance use status: uncomplicated Qualified Code(s): F17.210 - Nicotine dependence, cigarettes, uncomplicated (10) Type II diabetes mellitus Current Visit: No Status: Chronic Qualifiers: Diabetes mellitus correction insulin use: 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
[2017-07-20] MEDS ORDERED: MAGNESIUM CITRATE 300 ML BOTTLE PO PRN (19:36)
[2017-07-20] MEDS ORDERED: P-EPHED 60MG/TRIPROLIDI 2.5MG TABLET PO PRN (19:36)
[2017-07-20] MEDS ORDERED: MAGNESIUM HYDROX 2400MG/30ML ORAL SUSPENSION 30 ML CUP PO PRN (19:36)
[2017-07-20] MEDS ORDERED: LOPERAMIDE HCL 2 MG CAPSULE PO PRN (19:36)
[2017-07-20] MEDS ORDERED: hydrOXYzine PAMOATE 25 MG CAPSULE (FP) PO PRN (19:36)
[2017-07-20] MEDS ORDERED: chlordiazePOXIDE HCL 25 MG CAPSULE PO ONE (19:36)
[2017-07-20] MEDS ORDERED: guaiFENesin/D-METHORPHAN HB 10 ML UNIT-DOSE CUPS PO PRN (19:36)
[2017-07-20] MEDS ORDERED: chlordiazePOXIDE HCL 25 MG CAPSULE PO PRN (19:36)
[2017-07-20] MEDS ORDERED: MAG HYDROX/AL HYDROX/SIMETH 30 ML UNIT-DOSE CUP PO PRN (19:36)
[2017-07-20] MEDS ORDERED: MENTHOL/PHENOL 1 EACH UD MM PRN (19:36)
[2017-07-20] MEDS ORDERED: ACETAMINOPHEN 325 MG TABLET (FP) PO PRN (19:36)
[2017-07-20] MEDS ORDERED: IBUPROFEN 400 MG TABLET (FP) PO PRN (19:36)
[2017-07-20 19:45] VITALS: BMI 19.0
[2017-07-20] MEDS: THIAMINE HCL 100 MG TABLET (FP) PO SCH (21:16)
[2017-07-20] MEDS: NICOTINE 21 MG/24 HOURS TOPICAL PATCH TD SCH (21:21)
[2017-07-20] MEDS ORDERED: MELATONIN 5 MG TABLETS PO PRN (22:00)
[2017-07-20] MEDS: chlordiazePOXIDE HCL 25 MG CAPSULE PO SCH (22:42)
[2017-07-21 00:09] LABS: URINE APPEARANCE SLCLOUDY; URINE BILIRUBIN NEGATIVE (<2.0 mg/dL); URINE COLOR AMBER; URINE GLUCOSE (UA) NEGATIVE (NEGATIVE); URINE KETONE 1+ (NEGATIVE); URINE LEUK ESTERASE NEGATIVE (NEGATIVE); URINE NITRITE NEGATIVE (NEGATIVE); URINE UROBILINOGEN 4.0 E.U/dl mg/dL (0.2-1.0)
[2017-07-21 00:10] LABS: URINE PROTEIN 1+ (NEGATIVE)
[2017-07-21 00:18] LABS: CALCIUM OXALATE CRYSTALS MODERATE /hpf (NONE SEEN); EPI CELLS RARE /HPF (FEW); URINE HYALINE CAST 60 /lpf; URINE MUCUS MANY
[2017-07-21] MEDS: chlordiazePOXIDE HCL 25 MG CAPSULE PO SCH ×4 (05:55→22:31)
[2017-07-21 09:59] LABS: HEMATOCRIT 35.3 % (35.4-49); HEMOGLOBIN 12.2 GM/dL (11.7-16.9); MCH 32.6 pg (25.7-33.7); MCHC 34.6 g/dl (32.0-35.9); MEAN CELL VOLUME 94.3 fl (80-96); MEAN PLT VOLUME 7.5 fl (7.5-11.1); PLATELET COUNT 162 K/MM3 (134-434); RBC 3.74 M/mm3 (4.00-5.60); RDW 15.5 % (11.9-15.9); WHITE BLOOD COUNT 5.2 K/mm3 (4.0-10.0)
[2017-07-21 10:07] LABS: ALK PHOS 88 U/L (45-117); ANION GAP 8 (8-16); BILIRUBIN,TOTAL 0.5 mg/dL (0.2-1.0); BLOOD UREA NITROGEN 31 mg/dL (7-18); CALCIUM 8.9 mg/dL (8.5-10.1); CHLORIDE 100 mmol/L (98-107); CO2 30 mmol/L (21-32); CREATININE 0.9 mg/dL (0.7-1.3); GLUCOSE,RANDOM 136 mg/dL (74-106); POTASSIUM 3.9 mmol/L (3.5-5.1); SGOT/AST 30 U/L (15-37); SGPT/ALT 30 U/L (12-78); SODIUM 138 mmol/L (136-145); TOT PROT 6.8 g/dl (6.4-8.2)
[2017-07-21] MEDS: NICOTINE 21 MG/24 HOURS TOPICAL PATCH TD SCH (10:37)
[2017-07-21] MEDS: ASPIRIN 325 MG TABLET PO SCH (10:37)
[2017-07-21] MEDS: ATENOLOL 25 MG TABLET (FP) PO SCH (10:37)
[2017-07-21] MEDS: PRENATAL VITAMINS W/ FOLIC ACID TABLET (FP) PO SCH (10:37)
[2017-07-21] MEDS: LISINOPRIL 10 MG TABLET (FP) PO SCH (10:37)
--- NOTE | 2017-07-21 12:39 | EKG ---
Test Reason : Blood Pressure : / mmHG Vent. Rate : 068 BPM Atrial Rate : 068 BPM P-R Int : 180 ms QRS Dur : 096 ms QT Int : 420 ms P-R-T Axes : 066 050 053 degrees QTc Int : 446 ms NORMAL SINUS RHYTHM INCOMPLETE RIGHT BUNDLE BRANCH BLOCK BORDERLINE ECG WHEN COMPARED WITH ECG OF 20-JUL-2017 21:26, NO SIGNIFICANT CHANGE WAS FOUND Confirmed by GEO ELLINGTON MD ([id number]) on 07/21/2017 12:38:56 PM Referred By: Prasad Medrano Confirmed By:GEO ELLINGTON MD
--- NOTE | 2017-07-21 12:39 | EKG ---
Test Reason : Blood Pressure : / mmHG Vent. Rate : 065 BPM Atrial Rate : 065 BPM P-R Int : 168 ms QRS Dur : 100 ms QT Int : 428 ms P-R-T Axes : 065 043 043 degrees QTc Int : 445 ms NORMAL SINUS RHYTHM INCOMPLETE RIGHT BUNDLE BRANCH BLOCK BORDERLINE ECG WHEN COMPARED WITH ECG OF 30-JUN-2017 20:02, NO SIGNIFICANT CHANGE WAS FOUND Confirmed by GEO ELLINGTON MD ([id number]) on 07/21/2017 12:39:05 PM Referred By: Prasad Medrano Confirmed By:GEO ELLINGTON MD
--- NOTE | 2017-07-21 13:45 | PN ---
[facility] CIWA - CIWA Score Nausea/Vomitin-No Nausea/No Vomiting Muscle Tremors: 4-Moderate,w/Arms Extend Anxiety: 4-Mod. Anxious/Guarded Agitation: 4-Moderately Restless Paroxysmal Sweats: No Perspiration Orientation: 0-Oriented Tacttile Disturbances: 0-None Auditory Disturbances: 0-None Visual Disturbances: 0-None Headache: 0-None Present CIWA-Ar Total Score: 12 BHS Progress Note (SOAP) Subjective: SLIGHT TREMORS, ANXIETY,FATIGUE. Objective: 07/21/17 13:44 Vital Signs Temperature 97.8 F 07/21/17 13:27 Pulse Rate 52 L 07/21/17 13:27 Respiratory Rate 18 07/21/17 13:27 Blood Pressure 96/51 07/21/17 13:27 O2 Sat by Pulse Oximetry (%) Laboratory Last Values WBC 5.2 K/mm3 (4.0-10.0) 07/21/17 07:30 RBC 3.74 M/mm3 (4.00-5.60) L 07/21/17 07:30 Hgb 12.2 GM/dL (11.7-16.9) 07/21/17 07:30 Hct 35.3 % (35.4-49) L 07/21/17 07:30 MCV 94.3 fl (80-96) 07/21/17 07:30 MCH 32.6 pg (25.7-33.7) 07/21/17 07:30 MCHC 34.6 g/dl (32.0-35.9) 07/21/17 07:30 RDW 15.5 % (11.9-15.9) 07/21/17 07:30 Plt Count 162 K/MM3 (134-434) 07/21/17 07:30 MPV 7.5 fl (7.5-11.1) 07/21/17 07:30 Sodium 138 mmol/L (136-145) 07/21/17 07:30 Potassium 3.9 mmol/L (3.5-5.1) 07/21/17 07:30 Chloride 100 mmol/L (98-107) 07/21/17 07:30 Carbon Dioxide 30 mmol/L (21-32) 07/21/17 07:30 Anion Gap 8 (8-16) 07/21/17 07:30 BUN 31 mg/dL (7-18) H D 07/21/17 07:30 Creatinine 0.9 mg/dL (0.7-1.3) D 07/21/17 07:30 Creat Clearance w eGFR > 60 (>60) 07/21/17 07:30 POC Glucometer 118 UNITS (80-120) 07/21/17 05:55 Random Glucose 136 mg/dL (74-106) H D 07/21/17 07:30 Calcium 8.9 mg/dL (8.5-10.1) 07/21/17 07:30 Total Bilirubin 0.5 mg/dL (0.2-1.0) 07/21/17 07:30 AST 30 U/L (15-37) D 07/21/17 07:30 ALT 30 U/L (12-78) D 07/21/17 07:30 Alkaline Phosphatase 88 U/L (45-117) D 07/21/17 07:30 Total Protein 6.8 g/dl (6.4-8.2) 07/21/17 07:30 Albumin 3.0 g/dl (3.4-5.0) L 07/21/17 07:30 Urine Color Elena 07/20/17 20:36 Urine Appearance Slcloudy 07/20/17 20:36 Urine pH 5.0 (5.0-8.0) D 07/20/17 20:36 Ur Specific [place] 1.026 (1.001-1.035) 07/20/17 20:36 Urine Protein 1+ (NEGATIVE) H 07/20/17 20:36 Urine Glucose (UA) Negative (NEGATIVE) 07/20/17 20:36 Urine Ketones 1+ (NEGATIVE) H 07/20/17 20:36 Urine Blood Negative (NEGATIVE) 07/20/17 20:36 Urine Nitrite Negative (NEGATIVE) 07/20/17 20:36 Urine Bilirubin Negative (<2.0 mg/dL) 07/20/17 20:36 Urine Urobilinogen 4.0 e.u/dl mg/dL (0.2-1.0) 07/20/17 20:36 Ur Leukocyte Esterase Negative (NEGATIVE) 07/20/17 20:36 Urine WBC (Auto) 8 /hpf (3-5) 07/20/17 20:36 Urine RBC (Auto) 4 /hpf (0-3) 07/20/17 20:36 Ur Epithelial Cells Rare /HPF (FEW) 07/20/17 20:36 Calcium Oxalate Crystal Moderate /hpf (NONE SEEN) 07/20/17 20:36 Hyaline Casts 60 /lpf 07/20/17 20:36 Urine Mucus Many 07/20/17 20:36 RPR Titer Nonreactive (NONREACTIVE) 07/21/17 07:30 Assessment: 07/21/17 13:44 WITHDRAWAL SX Plan: CONTINUE DETOX INCREASE PO FLUIDS.
--- NOTE | 2017-07-21 15:33 | CONSULT ---
[facility] Psychiatric Consult - Data Date of interview: 07/21/17 Admission source: [facility] Identifying data: Readmission to [facility] for this 72 y/o male seeking detox treatment on for alcohol dependence.Patient is a , father of two,domiciled,unemployed and currently supported on his fdc benefits. Substance Abuse History: Confirmed by patient in this interview.Details in current [facility] report : Smoking history: Current every day smoker. Have you smoked in the past 12 months: Yes. Aproximately how many cigarettes per day: 20. Hx Chewing Tobacco Use: No. Initiated information on smoking cessation: Yes. 'Breaking Loose' booklet given: 07/20/17. - Substance & Tx. History. Hx Alcohol Use: Yes. Hx Substance Use: No. Substance Use Type: Alcohol. Hx Substance Use Treatment: Yes ([facility] 06/16/17 TO 06/21/17). - Substances Abused. Alcohol. Route: Oral. Frequency: Daily. Amount used: 1 LITER VODKA. Age of first use: 28. Date of Last Use: 07/19/17 Medical History: Hepatitis C,diabetes mellitus,dyslipidemia,hypertension,past history of syncopal attacks and thoracotomy (close) at age 52. Psychiatric History: Patient endorses a history of 20+ psychiatric hospitalizations.Diagnosed with MDD.Mr Wagner is currently followed at the [facility] ([facility] in [place]).Maintained on celexa 20 mg/day + seroquel 100 mg/hs + depakote 1000 mg/hs (confirmed by my call to [facility] @ [phone] : refills issued on 06/05/17).Patient denies history of suicide attempts. Physical/Sexual Abuse/Trauma History: Patient denies. Additional Comment: Toxicology not available. Mental Status Exam - Mental Status Exam Alert and Oriented to: Time, Place, Person Cognitive Function: Grossly Intact Patient Appearance: Disheveled (tall frame) Mood: Nervous, Withdrawn, Anxious Affect: Mood Congruent, Constricted Patient Behavior: Fatigued, Cooperative Speech Pattern: Clear, Appropriate Voice Loudness: Normal Thought Process: Goal Oriented Thought Disorder: Not Present Hallucinations: Denies Suicidal Ideation: Denies Homicidal Ideation: Denies Insight/Judgement: Poor Sleep: Poorly, Difficulty falling asleep Appetite: Poor, Weight loss Muscle strength/Tone: Normal Gait/Station: Normal Psychiatric Findings - Problem List ([place] 1, 2,3) (1) Alcohol dependence with uncomplicated withdrawal Current Visit: Yes Status: Acute (2) Nicotine dependence Current Visit: Yes Status: Acute Qualifiers: Nicotine product type: cigarettes Substance use status: in withdrawal Qualified Code(s): F17.213 - Nicotine dependence, cigarettes, with withdrawal (3) Substance induced mood disorder Current Visit: Yes Status: Acute (4) Schizoaffective disorder Current Visit: Yes Status: Chronic Qualifiers: Schizoaffective disorder type: depressive Qualified Code(s): F25.1 - Schizoaffective disorder, depressive type (5) Insomnia Current Visit: Yes Status: Acute - Initial Treatment Plan Initial Treatment Plan: Psychoeducation.Detoxification.Sleep hygiene.Falls precautions.Medications reconciled.Will resume medications as follows : seroquel 50 mg po hs (reduced) + celexa 20 mg po daily + depakote 500 mg po hs ( reduced/to be started once VA level becomes available).Side effects/benefits of each drug are discussed with the pattient.Mr Wagner has indicated his agreement to this plan of care.Valproic acid level : requested.Pending.Observation.
[2017-07-21] MEDS ORDERED: QUEtiapine FUMARATE 50 MG TABLET PO SCH (22:00)
[2017-07-21] MEDS ORDERED: ROSUVASTATIN CA 5 MG TABLET (FP) PO SCH (22:00)
[2017-07-21] MEDS: THIAMINE HCL 100 MG TABLET (FP) PO SCH (22:31)
[2017-07-22] MEDS: chlordiazePOXIDE HCL 25 MG CAPSULE PO SCH ×2 (05:26→10:51)
[2017-07-22] MEDS ORDERED: CITALOPRAM HYDROBROMIDE 20 MG TABLET (FP) PO SCH (10:00)
[2017-07-22] MEDS: ASPIRIN 325 MG TABLET PO SCH (10:51)
[2017-07-22] MEDS: NICOTINE 21 MG/24 HOURS TOPICAL PATCH TD SCH (10:52)
[2017-07-22] MEDS: LISINOPRIL 10 MG TABLET (FP) PO SCH (10:52)
[2017-07-22] MEDS: ATENOLOL 25 MG TABLET (FP) PO SCH (10:52)
[2017-07-22] MEDS: PRENATAL VITAMINS W/ FOLIC ACID TABLET (FP) PO SCH (10:52)
--- NOTE | 2017-07-22 13:50 | PN ---
[facility] CIWA - CIWA Score Nausea/Vomitin-No Nausea/No Vomiting Muscle Tremors: 4-Moderate,w/Arms Extend Anxiety: 4-Mod. Anxious/Guarded Agitation: 4-Moderately Restless Paroxysmal Sweats: No Perspiration Orientation: 0-Oriented Tacttile Disturbances: 0-None Auditory Disturbances: 0-None Visual Disturbances: 0-None Headache: 0-None Present CIWA-Ar Total Score: 12 S Progress Note (SOAP) Subjective: ANXIETY,CHILLS,BODY ACHES LEFT SIDE, DENIES RECENT TRUAMA-HX LEFT HIP FX 20 YRS AGO, SLIGHT TREMORS,FATIGUE Objective: 07/22/17 13:49 Vital Signs Temperature 96.8 F L 07/22/17 09:16 Pulse Rate 71 07/22/17 09:16 Respiratory Rate 18 07/22/17 09:16 Blood Pressure 115/73 07/22/17 09:16 O2 Sat by Pulse Oximetry (%) Laboratory Last Values WBC 5.2 K/mm3 (4.0-10.0) 07/21/17 07:30 RBC 3.74 M/mm3 (4.00-5.60) L 07/21/17 07:30 Hgb 12.2 GM/dL (11.7-16.9) 07/21/17 07:30 Hct 35.3 % (35.4-49) L 07/21/17 07:30 MCV 94.3 fl (80-96) 07/21/17 07:30 MCH 32.6 pg (25.7-33.7) 07/21/17 07:30 MCHC 34.6 g/dl (32.0-35.9) 07/21/17 07:30 RDW 15.5 % (11.9-15.9) 07/21/17 07:30 Plt Count 162 K/MM3 (134-434) 07/21/17 07:30 MPV 7.5 fl (7.5-11.1) 07/21/17 07:30 Sodium 138 mmol/L (136-145) 07/21/17 07:30 Potassium 3.9 mmol/L (3.5-5.1) 07/21/17 07:30 Chloride 100 mmol/L (98-107) 07/21/17 07:30 Carbon Dioxide 30 mmol/L (21-32) 07/21/17 07:30 Anion Gap 8 (8-16) 07/21/17 07:30 BUN 31 mg/dL (7-18) H D 07/21/17 07:30 Creatinine 0.9 mg/dL (0.7-1.3) D 07/21/17 07:30 Creat Clearance w eGFR > 60 (>60) 07/21/17 07:30 POC Glucometer 100 UNITS (80-120) 07/22/17 05:27 Random Glucose 136 mg/dL (74-106) H D 07/21/17 07:30 Calcium 8.9 mg/dL (8.5-10.1) 07/21/17 07:30 Total Bilirubin 0.5 mg/dL (0.2-1.0) 07/21/17 07:30 AST 30 U/L (15-37) D 07/21/17 07:30 ALT 30 U/L (12-78) D 07/21/17 07:30 Alkaline Phosphatase 88 U/L (45-117) D 07/21/17 07:30 Total Protein 6.8 g/dl (6.4-8.2) 07/21/17 07:30 Albumin 3.0 g/dl (3.4-5.0) L 07/21/17 07:30 Urine Color Elena 07/20/17 20:36 Urine Appearance Slcloudy 07/20/17 20:36 Urine pH 5.0 (5.0-8.0) D 07/20/17 20:36 Ur Specific [place] 1.026 (1.001-1.035) 07/20/17 20:36 Urine Protein 1+ (NEGATIVE) H 07/20/17 20:36 Urine Glucose (UA) Negative (NEGATIVE) 07/20/17 20:36 Urine Ketones 1+ (NEGATIVE) H 07/20/17 20:36 Urine Blood Negative (NEGATIVE) 07/20/17 20:36 Urine Nitrite Negative (NEGATIVE) 07/20/17 20:36 Urine Bilirubin Negative (<2.0 mg/dL) 07/20/17 20:36 Urine Urobilinogen 4.0 e.u/dl mg/dL (0.2-1.0) 07/20/17 20:36 Ur Leukocyte Esterase Negative (NEGATIVE) 07/20/17 20:36 Urine WBC (Auto) 8 /hpf (3-5) 07/20/17 20:36 Urine RBC (Auto) 4 /hpf (0-3) 07/20/17 20:36 Ur Epithelial Cells Rare /HPF (FEW) 07/20/17 20:36 Calcium Oxalate Crystal Moderate /hpf (NONE SEEN) 07/20/17 20:36 Hyaline Casts 60 /lpf 07/20/17 20:36 Urine Mucus Many 07/20/17 20:36 RPR Titer Nonreactive (NONREACTIVE) 07/21/17 07:30 Assessment: 07/22/17 13:49 WITHDRAWAL SX Plan: CONTINUE DETOX MOTRIN PRN
[2017-07-22 13:55] VITALS: BP 95/52; PULSE 58; TEMP 96.7
--- NOTE | 2017-07-22 14:35 | DS ---
[facility] Detox Discharge Summary Admission Date: 07/20/17 Discharge Date: 07/22/17 - History Present History: Alcohol Dependence Additional Comments: PT DECLINED TO CONTINUE DETOX STATING HE "GOT BUSINESS TO TAKE CARE OF...AN APPOINTMENT WITH THE FOOT DOCTOR THAT I MISSED AND NEED TO SEE HIM BACK AGAIN". PT HAS SOME TREMORS AND ALL EFFORTS TO ENCOURAGE TX FAILED. ALERT O X 3. NAD. PT PLANS TO FOLLOW THROUGH WITH OWN SET UP .."[facility] AT [facility]. Pertinent Past History: PLEASE SEE DX BELOW - Physical Exam Results Vital Signs: Vital Signs Temperature 96.7 F L 07/22/17 13:55 Pulse Rate 58 L 07/22/17 13:55 Respiratory Rate 18 07/22/17 13:55 Blood Pressure 95/52 07/22/17 13:55 O2 Sat by Pulse Oximetry (%) Pertinent Admission Physical Exam Findings: WITHDRAWAL SX Laboratory Last Values WBC 5.2 K/mm3 (4.0-10.0) 07/21/17 07:30 RBC 3.74 M/mm3 (4.00-5.60) L 07/21/17 07:30 Hgb 12.2 GM/dL (11.7-16.9) 07/21/17 07:30 Hct 35.3 % (35.4-49) L 07/21/17 07:30 MCV 94.3 fl (80-96) 07/21/17 07:30 MCH 32.6 pg (25.7-33.7) 07/21/17 07:30 MCHC 34.6 g/dl (32.0-35.9) 07/21/17 07:30 RDW 15.5 % (11.9-15.9) 07/21/17 07:30 Plt Count 162 K/MM3 (134-434) 07/21/17 07:30 MPV 7.5 fl (7.5-11.1) 07/21/17 07:30 Sodium 138 mmol/L (136-145) 07/21/17 07:30 Potassium 3.9 mmol/L (3.5-5.1) 07/21/17 07:30 Chloride 100 mmol/L (98-107) 07/21/17 07:30 Carbon Dioxide 30 mmol/L (21-32) 07/21/17 07:30 Anion Gap 8 (8-16) 07/21/17 07:30 BUN 31 mg/dL (7-18) H D 07/21/17 07:30 Creatinine 0.9 mg/dL (0.7-1.3) D 07/21/17 07:30 Creat Clearance w eGFR > 60 (>60) 07/21/17 07:30 POC Glucometer 100 UNITS (80-120) 07/22/17 05:27 Random Glucose 136 mg/dL (74-106) H D 07/21/17 07:30 Calcium 8.9 mg/dL (8.5-10.1) 07/21/17 07:30 Total Bilirubin 0.5 mg/dL (0.2-1.0) 07/21/17 07:30 AST 30 U/L (15-37) D 07/21/17 07:30 ALT 30 U/L (12-78) D 07/21/17 07:30 Alkaline Phosphatase 88 U/L (45-117) D 07/21/17 07:30 Total Protein 6.8 g/dl (6.4-8.2) 07/21/17 07:30 Albumin 3.0 g/dl (3.4-5.0) L 07/21/17 07:30 Urine Color Elena 07/20/17 20:36 Urine Appearance Slcloudy 07/20/17 20:36 Urine pH 5.0 (5.0-8.0) D 07/20/17 20:36 Ur Specific [place] 1.026 (1.001-1.035) 07/20/17 20:36 Urine Protein 1+ (NEGATIVE) H 07/20/17 20:36 Urine Glucose (UA) Negative (NEGATIVE) 07/20/17 20:36 Urine Ketones 1+ (NEGATIVE) H 07/20/17 20:36 Urine Blood Negative (NEGATIVE) 07/20/17 20:36 Urine Nitrite Negative (NEGATIVE) 07/20/17 20:36 Urine Bilirubin Negative (<2.0 mg/dL) 07/20/17 20:36 Urine Urobilinogen 4.0 e.u/dl mg/dL (0.2-1.0) 07/20/17 20:36 Ur Leukocyte Esterase Negative (NEGATIVE) 07/20/17 20:36 Urine WBC (Auto) 8 /hpf (3-5) 07/20/17 20:36 Urine RBC (Auto) 4 /hpf (0-3) 07/20/17 20:36 Ur Epithelial Cells Rare /HPF (FEW) 07/20/17 20:36 Calcium Oxalate Crystal Moderate /hpf (NONE SEEN) 07/20/17 20:36 Hyaline Casts 60 /lpf 07/20/17 20:36 Urine Mucus Many 07/20/17 20:36 Valproic Acid 5.635 ug/ml (50-100) L 07/22/17 08:35 RPR Titer Nonreactive (NONREACTIVE) 07/21/17 07:30 - Treatment Hospital Course: Discharged Condition Good - Medication Discharge Medications: Ambulatory Orders Atenolol [Tenormin -] 12.5 mg PO DAILY 09/20/15 Citalopram Hydrobromide [Celexa -] 20 mg PO DAILY 09/20/15 Lisinopril [Prinivil] 10 mg PO DAILY 09/20/15 Metformin HCl [Metformin HCl ER] 500 mg PO DAILY 09/20/15 Quetiapine Fumarate [Seroquel] 100 tab PO HS 09/20/15 Rosuvastatin Calcium [Crestor] 5 mg PO DAILY 09/20/15 Aspirin [ASA -] 325 mg PO DAILY 07/20/17 Divalproex Sodium [Divalproex Sodium ER] 1,000 mg PO HS 07/20/17 - Diagnosis (1) Frequent falls Current Visit: Yes Status: Suspected (2) Hepatitis C Current Visit: Yes Status: Chronic Qualifiers: Viral hepatitis chronicity: chronic (3) Plaque psoriasis Current Visit: Yes Status: Chronic (4) Alcohol dependence with uncomplicated withdrawal Current Visit: Yes Status: Acute (5) HTN (hypertension) Current Visit: Yes Status: Chronic Qualifiers: Hypertension type: essential hypertension Qualified Code(s): I10 - Essential (primary) hypertension (6) Hypercholesterolemia Current Visit: Yes Status: Chronic (7) Nicotine dependence Current Visit: Yes Status: Acute Qualifiers: Nicotine product type: cigarettes Substance use status: in withdrawal Qualified Code(s): F17.213 - Nicotine dependence, cigarettes, with withdrawal (8) Type II diabetes mellitus Current Visit: Yes Status: Chronic Qualifiers: Diabetes mellitus joint terminal attack controller insulin use: without joint terminal attack controller use Diabetes mellitus complication status: without complication Qualified Code(s): E11.9 - Type 2 diabetes mellitus without complications - AMA Did Patient Leave Against Medical Advice: Yes (AMA)
--- NOTE | 2017-07-22 14:36 | PN ---
[facility] Progress Note Note: PT DECLINED TO CONTINUE WITH DETOX STATING HE WANTS TO SIGN OUT TODAY. PT STATES HE HAS TO GO AND SEE HIS FOOT DOCTOR BECAUSE MISSED THE APPOINTMENT. PT STATES HE PLANS TO GO TO [facility]GRAM. ALERT O X 3.
--- NOTE | 2017-07-22 17:18 | PN ---
[facility] Progress Note Note: Psychiatry Attending's note : Patient left the program. Valproic acid level = 5.635 (negligible). Indicative of non-adherence. Mr Wagner declined scripts. Planned to return to [facility].
[2017-07-22] MEDS ORDERED: chlordiazePOXIDE 5 MG CAPSULE PO SCH (23:00)
[2017-07-23] MEDS ORDERED: chlordiazePOXIDE HCL 10 MG CAPSULE PO SCH (23:00)
== END 2017-07-22 15:08 | disposition left against medical advice (07) | DRG 894 ==
LOC: YASAS 16:27 → Y3N 17:54
PROVIDERS: ADMIT Internal Medicine; ATTEND Internal Medicine
PROC: HZ2ZZZZ Detoxification Services for Substance Abuse Treatment (ICD-10-PCS; principal; 2017-07-20)
DX: F10.230 Alcohol dependence with withdrawal, uncomplicated (principal); F17.213 Nicotine dependence, cigarettes, with withdrawal; F25.9 Schizoaffective disorder, unspecified; F19.24 Other psychoactive substance dependence with psychoactive substance-induced mood disorder; F51.05 Insomnia due to other mental disorder; F32.9 Major depressive disorder, single episode, unspecified; I10 Essential (primary) hypertension; E11.9 Type 2 diabetes mellitus without complications; E78.00 Pure hypercholesterolemia, unspecified; R29.6 Repeated falls; Z79.84 Long term (current) use of oral hypoglycemic drugs
CPT/HCPCS: 36415; 80053; 80164; 81003; 81015; 82962; 85027; 86593; 93005; 93010